=== PATIENT | male | born 1960 | race Caucasian/White ===

== ENCOUNTER 2022-07-25 05:04 | Observation (INO) ==
--- NOTE | 2022-07-03 15:06 | PAT Medication Instructions ---
Medication Instructions Date of Service July 03, 2022 Home Medications amlodipine 5 mg-valsartan 160 mg tablet 1 tab PO QAM atorvastatin 10 mg tablet 10 mg PO QAM oxycodone 10 mg tablet 10 mg PO BID oxycodone 10 mg tablet,crush resistant,extended release 12 hr (OxyContin) 10 mg PO BID tamsulosin 0.4 mg capsule 0.4 mg PO QAM DO NOT take the morning of surgery amlodipine 5 mg-valsartan 160 mg tablet 1 tab PO QAM Take morning of surgery With a small sip of water, OTHERWISE NOTHING TO EAT OR DRINK AFTER MIDNIGHT: atorvastatin 10 mg tablet 10 mg PO QAM oxycodone 10 mg tablet 10 mg PO BID oxycodone 10 mg tablet,crush resistant,extended release 12 hr (OxyContin) 10 mg PO BID tamsulosin 0.4 mg capsule 0.4 mg PO QAM Take evening before surgery oxycodone 10 mg tablet 10 mg PO BID oxycodone 10 mg tablet,crush resistant,extended release 12 hr (OxyContin) 10 mg PO BID Other Notes If you have any questions please call us at [phone] or [phone] or [phone] or [phone]
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
[2022-07-25] MEDS ORDERED: METOCLOPRAMIDE HCL 10 MG TABLET PO SCH (06:00)
[2022-07-25] MEDS ORDERED: FAMOTIDINE 20 MG TAB PO SCH (06:00)
[2022-07-25] MEDS ORDERED: CeleBREX 200 MG CAP PO SCH (06:00)
[2022-07-25] MEDS ORDERED: TRANEXAMIC ACID 1,000 MG **IV Pre-op IV SCH (06:00)
[2022-07-25] MEDS ORDERED: TRANEXAMIC ACID 1,000 MG **IV Intra-op IV SCH (06:00)
[2022-07-25] MEDS ORDERED: dexAMETHasone 4 MG TAB PO SCH (06:00)
[2022-07-25] MEDS ORDERED: LR 500ML BOLUS, THEN 15ML/HR IV SCH (06:00)
[2022-07-25] MEDS ORDERED: ceFAZolin 2000MG 2,000 MG/15 ML SYR IV SCH (06:00)
[2022-07-25] MEDS ORDERED: ACETAMINOPHEN 500 MG TAB PO SCH (06:00)
[2022-07-25] MEDS ORDERED: ROPIVACAINE 0.5% HCL/PF 150 MG, BUPIVACAINE 0.75% MPF 20 ML, EPINEPHrine 30MG/30ML (OR ... INSTIL SCH (06:00)
[2022-07-25] MEDS ORDERED: GABAPENTIN 600 MG DOSE PO SCH (06:00)
[2022-07-25] MEDS ORDERED: BUPIVACAINE 0.5 % 5 MG/1 ML PF 10ML VIAL ONE (06:15)
[2022-07-25] MEDS ORDERED: DEXAMETHASONE SOD INJ 4 MG/ML VIAL ONE (06:15)
[2022-07-25] MEDS ORDERED: ROPIVACAINE 0.5% 5 MG/ML 30 ML VIAL ONE (06:15)
[2022-07-25] MEDS ORDERED: LIDOCAINE 2% 2 ML VIAL/AMP(20MG/ML) INFIL ONE (06:38)
[2022-07-25] MEDS ORDERED: MIDAZOLAM HCL 1 MG/ML 2ML VIAL ONE ×3 (06:38→07:40)
[2022-07-25] MEDS ORDERED: PROPOFOL IV EMULSION 10 MG/ML 20 ML VIAL IV ONE (06:38)
[2022-07-25] MEDS ORDERED: fentaNYL citrate PF 100 MCG/2 ML VIAL ONE (06:38)
--- NOTE | 2022-07-25 06:59 | History & Physical Bridge Note ---
Date of Service July 25, 2022 History & Physical Bridge Note I have examined the patient, reviewed the History & Physical and in the interval since the performance of the History & Physical I have noted the following changes of clinical significance: no changes noted
[2022-07-25] MEDS ORDERED: ORTHO JOINT ANESTHETIC ONE (07:03)
[2022-07-25] MEDS ORDERED: KETAMINE 50 MG/5 ML SYRINGE ONE (07:40)
[2022-07-25] MEDS ORDERED: ATROPINE SULFATE 0.1 MG/ML 10ML SYR IV PRN (07:41)
[2022-07-25] MEDS ORDERED: ONDANSETRON INJ 2 MG/ML 2 ML VIAL IV PRN ×2 (07:41→08:57)
[2022-07-25] MEDS ORDERED: HYDROmorphone INJ 2 MG/ML SYR/VIAL IV PRN (07:41)
[2022-07-25] MEDS ORDERED: ePHEDrine sulfate 50 MG/ML AMP IV PRN (07:41)
[2022-07-25] MEDS ORDERED: ePHEDrine sulfate 50 MG/ML SYR ONE (07:51)
--- NOTE | 2022-07-25 08:24 | Operative Report ---
Post Operative Report Pre & Post Diagnosis Operation Date: 07/25/22 07:00 Pre-Op Diagnosis: Right Knee Osteoarthritis Post-Op Diagnosis: Right Knee Osteoarthritis I identified the patient and participated in the time-out.: Yes Procedure Operation Date: 07/25/22 07:00 Actual Procedures p Right Total Knee Arthroplasty(Right) utilizing [employer] persona patient matched total knee arthroplasty size femur 9 tibia G poly 12 medial constrained patella 34 baldev- Anirudh Flores DO Surgeon Anirudh Flores DO Real Estate Appraiser Supervisor SOPHIA Acosta Estimated Blood Loss 5 Findings Consistent with Post-Op Diagnosis Patient presents with severe end-stage DJD 10 degree flexion contracture varus alignment subchondral sclerosis marginal osteophyte subchondral cystic changes moderate to large effusion Specimens Bone and cartilage Drains Medium bore Hemovac Anesthesia Type MAC Spinal Regional Complications none Disposition Accompanied Patient To Recovery: No Disposition: Recovery Room Indications Patient presents with severe end-stage DJD with the above intraoperative findings failed attempted conservative management occluding physical therapy anti-inflammatories relative rest activity modification corticosteroid injection viscosupplementation above intraoperative findings were noted Description of Procedure After proper prepping and draping of the Right lower extremity anterior midline incision was made over the region of the extensor extensor mechanism after meticulous hemostasis was obtained and maintained in subcutaneous tissues a medial parapatellar incision was made The patella was subluxed lateralward the medial lateral gutter were cleaned from any hypertrophic synovitis and scar t issue of the distal femoral block was placed and the distal femoral osteotomy cut was made subsequently the chamfers anterior and posterior osteotomy cuts were made utilizing the 4-in-1 block the tibia was subsequently subluxed anteriorward medial and ateral meniscal remnants were excised in their entirety remnants of the anterior and posterior cruciate ligaments were excised in their entirety excellent exposure of the proximal tibia was obtained the tibial osteotomy guide was placed on the proximal tibial osteotomy cut was made once again the knee was irrigated with copious amounts of sterile saline solution the patella was subsequently everted lateralward thickened scar tissue around the patella was removed the patella was subsequently cut utilizing a freehand technique and was drilled prepared for final preparation and placement of patella socially flexion-extension gaps were checked and the equal and symmetric trials were placed to the appropriate femoral and tibial trials with poly-spacer being placed for equal flexion and extension gaps and full range of motion including extension to 0 and flexion to 140 the trial components after having been taken to recovery range of motion was subsequently removed meticulous hemostasis was obtained and maintained subsequently a knee block injection of joint cocktail including ropivacaine 0.5% 150 mg. Bupivacaine 0.5% epinephrine 1-200,030 mL's toradol 30 mg dexamethasone 4 mg ketamine 10 mg clonidine 100 micrograms normal saline solution 30 mg was infiltrated into the soft tissues of the posterior knee medial lateral gutters and periosteal synovium special attention was paid to protect neurovascular structures at all times subsequently trial components having been removed the knee was irrigated with sterile saline solution. debris was removed the proximal tibia was subsequently prepared and was made ready for the placement of the tibial component tibial component was also cemented and tamped into position the femoral component was subsequently placed and cemented in the position the patellar component was subsequently cemented in position because hemostasis once again obtained and maintained wound having been thoroughly irrigated with debridement and debridement lavage was performed as well as a medial parapatellar incision closed with #1 Vicryl in interrupted fashion subcutaneous was closed with #2 Vicryl skin was closed with skin clips. PA-C was necessary for prepping and drapping as well as wound closure of deep fascia Sub cutaneous tissue and skin and was necessary for the case. A sterile compressive dressing was placed patient was taken to recovery in stable condition of report dictated by Mark I attest to the content of the Intraoperative Record and any orders documented therein. Any exceptions are noted below.Due to the complex nature of the procedure, the entire surgery was performed with the operational assistance of SOPHIA Acosta. The gift shop assistant, under direct supervision, was involved in the actual performance of all aspects of the surgical procedure including hemostasis, tissue retraction and incision, instrument management, patient positioning, and wound closure. I attest to the content of the Intraoperative Record and any orders documented therein. Any exceptions are noted below.
[2022-07-25] MEDS ORDERED: NALOXONE HCL 0.4 MG/1 ML VIAL/CARP IV PRN (08:57)
[2022-07-25] MEDS ORDERED: HYDROmorphone INJ 1 MG/ML SYRINGE IV PRN (08:57)
[2022-07-25] MEDS ORDERED: METOCLOPRAMIDE HCL INJ 5 MG/ML 2 ML VIAL IV PRN (08:57)
[2022-07-25] MEDS ORDERED: bisacodyL 10 MG SUPP PR PRN (08:57)
[2022-07-25] MEDS ORDERED: diphenhydrAMINE Capsule 25 MG CAP PO PRN (08:57)
[2022-07-25] MEDS ORDERED: oxyCODONE HCL IR 5 MG TAB (IMMEDIATE RELEASE) PO PRN (08:57)
[2022-07-25] MEDS ORDERED: MAGNESIUM HYDROXIDE SUSP 30 ML UDC PO PRN (08:57)
[2022-07-25] MEDS ORDERED: SODIUM CHLORIDE 0.9% 1000ML 1,000 ML IV SCH (09:00)
--- NOTE | 2022-07-25 09:21 | Anesthesiology Progress Note ---
Date of Service July 25, 2022 Anesthesia Post Procedure Vital Signs Vital Signs: Temp Pulse Pulse Resp BP Pulse Ox O2 Del Method 07/25/22 09:10 83 12 94/63 L 93 Room Air 07/25/22 09:00 83 14 88/60 L 97 Oxymask 07/25/22 08:57 36 C L 80 16 82/49 L 97 Oxymask 07/25/22 05:49 36.6 C 75 20 137/78 97 Room Air O2 Flow Rate 07/25/22 09:10 07/25/22 09:00 6 07/25/22 08:57 6 07/25/22 05:49 Pain Intensity Right Knee: Pain Intensity: 4 Transfer of Care Handoff Completed per policy Notes Mental Status: alert / awake / arousable and participated in evaluation Nausea / Vomiting: adequately controlled Pain: adequately controlled Airway Patency, RR, SpO2: stable & adequate BP & HR: stable & adequate Hydration State: stable & adequate Neuraxial Anesthesia: was administered and sensory block is resolving Anesthetic Complications: no major complications apparent and Pt Satisfied with anesthetic care
--- NOTE | 2022-07-25 09:37 | XRay Report ---
XR knee RT 1 or 2V routine HISTORY: 62 years-old Male Surgical Post Op right knee arthroplasty COMPARISON: None TECHNIQUE: 2 views of the right knee FINDINGS: Total joint arthroplasty with patellar resurfacing. Surgical drainage catheter noted along with expec kulwant postoperative soft tissue swelling with deep tissue air. No acute fracture, dislocation or unexpe cted opaque foreign body identified. IMPRESSION: Total joint arthroplasty and patellar resurfacing with expected postoperative changes. ACT 112: Negative or not required by law. The above report was generated using voice recognition software. It may contain grammatical, syntax o r spelling errors. Electronically signed by: Chung Frost M.D. 07/25/2022 9:36 AM
[2022-07-25] MEDS ORDERED: AMLODIPINE VALSARTAN PO SCH (10:09)
[2022-07-25] MEDS: amLODIPine BESYLATE 5 MG TAB PO SCH (11:42)
[2022-07-25] MEDS: ATORVASTATIN 10 MG TAB PO SCH (11:42)
[2022-07-25] MEDS: TAMSULOSIN HCL 0.4 MG CAP PO SCH (11:42)
[2022-07-25] MEDS: VALSARTAN 80 MG TAB PO SCH (11:43)
[2022-07-25] MEDS: ASPIRIN 81 MG ECTAB PO SCH ×2 (11:43→20:39)
[2022-07-25] MEDS: DOCUSATE SODIUM 100 MG CAP PO SCH ×2 (11:43→20:38)
[2022-07-25] MEDS: MULTIVITAMIN TAB PO SCH (11:43)
[2022-07-25] MEDS: KETOROLAC 30 MG/ML VIAL IV SCH ×3 (11:43→20:40)
[2022-07-25] MEDS: oxyCODONE HCL 10 MG TABCR (OxyCONTIN) PO SCH ×2 (11:45→20:37)
[2022-07-25] MEDS: ACETAMINOPHEN 500 MG TAB PO SCH ×2 (13:35→22:24)
[2022-07-25] MEDS: ceFAZolin 2000MG 2,000 MG/15 ML SYR IV SCH ×2 (13:59→22:24)
[2022-07-25] MEDS ORDERED: SENNA 8.6 MG TAB PO SCH (21:00)
[2022-07-26] MEDS: KETOROLAC 30 MG/ML VIAL IV SCH (03:27)
[2022-07-26] MEDS: ACETAMINOPHEN 500 MG TAB PO SCH (05:54)
[2022-07-26 06:20] LABS: Hematocrit (blood only) 40.4 % (42.0-52.0); Hemoglobin 14.2 g/dl (14.0-18.0); Mean Corpuscular Hemoglobin 30.9 pg (25.0-34.0); Mean Corpuscular Hgb Conc 35.1 g/dL (32.0-36.0); Mean Corpuscular Volume 87.8 fL (80.0-100.0); Platelet Count 265 K/uL (130-400); RDW Coefficient of Variation 12.7 % (11.5-14.5); RDW Standard Deviation 40.7 fL (36.4-46.3); White Blood Count 15.23 K/ul (4.8-10.8)
[2022-07-26 06:32] LABS: BUN Creatinine Ratio 17.9 (10-20); Calcium 9.2 mg/dl (8.6-10.3); Creatinine Clr Calc Pharmacy 99.9 ml/min; Est GFR (Non-African American) 85.4 ml/min
[2022-07-26] MEDS: MULTIVITAMIN TAB PO SCH (07:50)
[2022-07-26] MEDS: ASPIRIN 81 MG ECTAB PO SCH (07:50)
[2022-07-26] MEDS: VALSARTAN 80 MG TAB PO SCH (07:50)
[2022-07-26] MEDS: ATORVASTATIN 10 MG TAB PO SCH (07:50)
[2022-07-26] MEDS: TAMSULOSIN HCL 0.4 MG CAP PO SCH (07:50)
[2022-07-26] MEDS: DOCUSATE SODIUM 100 MG CAP PO SCH (07:51)
[2022-07-26] MEDS: amLODIPine BESYLATE 5 MG TAB PO SCH (07:51)
[2022-07-26] MEDS: oxyCODONE HCL 10 MG TABCR (OxyCONTIN) PO SCH (07:53)
[2022-07-26] MEDS ORDERED: CeleBREX 200 MG CAP PO SCH (09:00)
--- NOTE | 2022-07-26 09:56 | Orthopedic Progress Note ---
Date of Service July 26, 2022 Assessment & Plan (1) Arthritis of right knee: Plan: Postop day 1 status post right total knee arthroplasty PT/OT protocols. Weightbearing as tolerated. DVT prophylaxis-aspirin p.o. twice daily, SCDs, JEFFERY siegel. Pain management as written. Leukocytosis-likely secondary from preoperative steroids and/or surgical stress. Patient asymptomatic DC planning-patient is planning for home health services upon discharge. Plan for discharge to home today. Admission and Anticipated Discharge Date Admission Date: July 25, 2022 Subjective Postop day 1 Patient was just finishing up his physical therapy session ambulating in the hallway. Physical therapist states he did well with stairs and is progressing well. Patient does have some mild pain in the right knee after having therapy but states he is tolerating well. He feels currently comfortable. Denies shortness of breath, chest pain, lightheadedness. He is hoping to go home today. Physical Exam Physical Exam: Dressings are clean, dry, and intact. Calves are soft nontender. Neurovascular is intact. Toes are mobile. He has good dorsiflexion and plantarflexion of the right foot. Hemovac drainage was 200 cc from the previous shift. Results & Data Vital Signs (Past 12 Hours) Vital Signs Temp Pulse Resp BP BP Pulse Ox O2 Del Method 07/26/22 06:24 36.5 C 70 16 123/79 97 Room Air 07/26/22 02:50 36.3 C L 72 16 108/65 98 Room Air 07/25/22 22:37 36.3 C L 80 16 131/73 97 Room Air Laboratory Results Laboratory Results WBC 15.23 K/ul (4.8-10.8) H 07/26/22 05:51 RBC 4.60 M/uL (4.70-6.10) L 07/26/22 05:51 Hgb 14.2 g/dl (14.0-18.0) 07/26/22 05:51 Hct 40.4 % (42.0-52.0) L 07/26/22 05:51 MCV 87.8 fL (80.0-100.0) 07/26/22 05:51 MCH 30.9 pg (25.0-34.0) 07/26/22 05:51 MCHC 35.1 g/dL (32.0-36.0) 07/26/22 05:51 RDW Std Deviation 40.7 fL (36.4-46.3) 07/26/22 05:51 RDW Coeff of Jason 12.7 % (11.5-14.5) 07/26/22 05:51 Plt Count 265 K/uL (130-400) 07/26/22 05:51 MPV 9.0 fL (9.4-12.4) L 07/26/22 05:51 Sodium 138 mmol/L (136-145) 07/26/22 05:51 Potassium 4.0 mmol/L (3.5-5.1) 07/26/22 05:51 Chloride 105 mmol/L (98-107) 07/26/22 05:51 Carbon Dioxide 26 mmol/L (21-32) 07/26/22 05:51 Anion Gap 7 (3-11) 07/26/22 05:51 BUN 17 mg/dl (6-23) 07/26/22 05:51 Creatinine 0.95 mg/dl (0.6-1.4) 07/26/22 05:51 Est Cr Clr Drug Dosing 99.9 ml/min 07/26/22 05:51 Est GFR ( Amer) 99.0 ml/min 07/26/22 05:51 Est GFR (Non-Af Amer) 85.4 ml/min 07/26/22 05:51 BUN/Creatinine Ratio 17.9 (10-20) 07/26/22 05:51 Glucose 123 mg/dl (70-99(Fasting)) H 07/26/22 05:51 Calcium 9.2 mg/dl (8.6-10.3) 07/26/22 05:51 SARS-CoV-2, RNA, NAAT NEGATIVE (NEGATIVE) 07/25/22 05:16 Impressions Knee X-Ray 07/25/22 09:00 XR knee RT 1 or 2V routine HISTORY: 62 years-old Male Surgical Post Op right knee arthroplasty COMPARISON: None TECHNIQUE: 2 views of the right knee FINDINGS: Total joint arthroplasty with patellar resurfacing. Surgical drainage catheter noted along with expected postoperative soft tissue swelling with deep tissue air. No acute fracture, dislocation or unexpected opaque foreign body identified. IMPRESSION: Total joint arthroplasty and patellar resurfacing with expected postoperative changes. ACT 112: Negative or not required by law. The above report was generated using voice recognition software. It may contain grammatical, syntax or spelling errors. Electronically signed by: Chung Frost M.D. 07/25/2022 9:36 AM
--- NOTE | 2022-07-26 11:58 | Discharge Summary ---
Date of Service date of discharge: July 26, 2022 date of admission: 07-25-22 Admission HPI Per Admitting Provider Neno is a pleasant 62-year-old male who presents for preop evaluation prior to his right total knee replacement. He states that he been having pain in his knee for many years now which is gradually worsened and is now affecting his daily activities including walking standing using stairs. He has a history of prior knee arthroscopy as well as injections including cortisone and viscosupplementation without any significant relief. He does use oxycodone and OxyContin for pain, he states these are more so for his neck and shoulder pain and is managed by [facility]. This point time is failed conservative measures and would like to proceed with a right total knee replacement Principal Diagnosis right knee arthritis Discharge Exam Vital Signs Temp 36.6 C 07/26/22 11:22 Pulse 72 07/26/22 11:22 Resp 18 07/26/22 11:22 BP 121/81 07/26/22 11:22 Pulse Ox 98 07/26/22 11:22 O2 Del Method Room Air 07/26/22 11:22 O2 Flow Rate 6 07/25/22 09:00 Intake & Output 07/25/22 07/26/22 07/26/22 18:59 06:59 18:59 Intake Total 3141.667 / 3141.667 Output Total 845 / 3570 2725 / 3570 300 / 300 Balance 2296.667 / -428.333 -2725 / -428.333 -300 / -300 Weight 114.6 kg 114.6 kg Intake: IV 861.667 / 861.667 Lactated Ringer's 1,000 ml @ 15 0 / 0 mls/hr IV .Q24H NEAL Rx#: [id number] Sodium Chloride 0.9% 1000ML 1, 661.667 / 661.667 000 ml @ 100 mls/hr IV .Q10H NEAL Rx#:[id number] Tranexamic Acid / 0.7% NaCl 1, 200 / 200 000 mg In 100 ml @ 600 mls/hr IV TODAY@0600 NEAL Rx#:[id number] IV Perioperative 1800 / 1800 Oral 480 / 480 Output: Urine 500 / 2875 2375 / 2875 Estimated Blood Loss 5 / 5 Drain Output 340 / 690 350 / 690 300 / 300 Right Knee Hemovac 340 / 690 350 / 690 300 / 300 Musculoskeletal right knee: NVDI, calf SNT, negative zoraida sign. DP palpable, able to wiggle toes/ankle movement without difficulty. MIGUEL dressing clean dry and intact. expected post-operative bruising noted. Discharge Data Allergies Allergy/AdvReac Type Severity Reaction Status Date / Time morphine Allergy Intermediate Vomiting Verified 07/25/22 05:31 Cleanser Allergy Hives Uncoded 07/10/22 10:22 (with preop cleanser) Procedures Performed Operation Date: 07/25/22 07:00 Actual Procedures p Right Total Knee Arthroplasty(Right) - Anirudh Flores DO Ordered Studies 07/25/22 05:00 US - OR guided needle placemen Routine Hospital Course (1) Arthritis of right knee: Postop day 1 status post right total knee arthroplasty PT/OT protocols. Weightbearing as tolerated. DVT prophylaxis-aspirin p.o. twice daily, SCDs, JEFEFRY hose. Pain management as written. Leukocytosis-likely secondary from preoperative steroids and/or surgical stress. Patient asymptomatic DC planning-patient is planning for home health services upon discharge. Plan for discharge to home today. Total Time Total Time Spent Total Time Spent (In Minutes): 20 Discharge Plan Discharge Items Patient Disposition: Home - Home Health Services Reason For Visit: Right Knee Osteoarthritis Discharge Diagnosis: right total knee replacement Activity: Per Instructions section Weightbearing: Right weightbearing Weightbearing Comment: right leg WBAT with walker Non-emergency contact: Surgeon Call non-emergency contact if: you have any medication questions, your temperature is above 101, your wound has increased redness, your wound has increased drainage and your wound pain has increased Follow-up/Referrals: Adonis Beatty PA-C [Physician Dental Service Chief] - None (14-16 days post op) Steve Packer [Primary Care Provider] - Diet: Regular Addtl Attending Provider Instructions: ACTIVITY RECOMMENDATIONS: SELF CARE INSTRUCTIONS AFTER TOTAL KNEE REPLACEMENT A. You may need to continue a physical therapy program after discharge from the hospital. There are several options available to you. Your doctor will assist you in selecting the best one for you. 1. An out-patient facility 2 to 3 times a week for therapy or home therapy. 2. Continue working on all exercises taught to you in the hospital. Your goals should be to increase bending of your knee to 90 degrees and beyond and to fully straighten your knee. B. You may progress at your own pace from walking with a walker or crutches to a cane; then to no assistive devices. C. Make walking a part of your daily routine. Be up as much as comfortable with rest periods throughout the day. Rest with leg elevation is very important. Use the ice wrap frequently for the first 3-4 weeks. D. There are no restrictions on activities. You may ride in a car, shop, participate in roll builder and all social activities. E. Wear the long elastic stockings (JEFFERY hose) 20 hours a day for 2 weeks after surgery. They can be removed several times a day for laundering and for a bath. F. You may shower, no tub baths until cleared by your doctor. SPECIAL CARE INSTRUCTIONS: VERY IMPORTANT TO READ AND REVIEW A. There are a few signs you need to watch for after you are home. Call [facility] if you notice any of the followin. Increased severe knee pain. Some pain is expected especially when you exercise. 2. Increased swelling in your leg or knee; pain or swelling of the calf muscle in either lower leg. 3. Any fluid drainage from the incision. 4. Shortness of breath or chest pain. B. Please call [facility] at if you have any concerns or questions about your operation or recovery. The doctor or his nurse will return your call promptly. C. You must take antibiotics before dental work, bladder, bowel or other surgery. Your doctor will provide you with a permanent care to carry describing this precaution. IMPORTANT: * REMEMBER TO TAKE ASPIRIN, 81 MG, TWICE DAILY FOR 4 WEEKS UNLESS OTHERWISE DIRECTED. THIS IS YOUR BLOOD THINNER. * HIGH RISK PATIENTS MAY BE PRESCRIBED A STRONGER BLOOD THINNER. THIS WILL BE PROVIDED AT DISCHARGE. * CALL IF INCREASED PAIN, REDNESS, DRAINAGE OR FEVER GREATER THAT 101. * WEAR JEFFERY HOSE 20 HOURS PER DAY FOR 2 WEEKS. DRESSING INSTRUCTIONS * MIGUEL Dressing- This is a large suction dressing covering your incision. This will help pull any excess drainage from the wound and allow your incision to heal properly. You may shower with this if you can keep the unit outside of the shower. If any bleeding or leakage is noted please call your doctor's office. This will remain on your incision for 7 days and then should be removed. This can be done yourself or by the home nursing staff if applicable. The entire unit is disposable once removed. Once removed, keep incision clean and dry. If redness or drainage is noted, please call your surgeon. ONCE MIGUEL IS REMOVED, FOLLOW THESE INSTRUCTIONS: DERMABOND Prineo- This is a mesh tape dressing that is covered with glue. It should remain in place until the incision is properly healed, usually 10-14 days. This dressing is designed to naturally slough off. You may trim the excess mesh tape as it peels off. Incision may be briefly wet in a shower. Dry immediately by blotting with a clean, dry towel. Do not bath or swim until instructed by your doctor. Do not scratch, rub, or pick at the dressing. Do not apply any topical ointments or lotions until dressing is completely removed and/or instructed by your doctor. There may be a small piece of suture material at one end of your incision. Do not pull or trim this. If it is bothersome or catching on clothing, you may cover it with a band-aid. IF INCISION IS LEAKING THROUGH DRESSING, CALL THE OFFICE . FOLLOW UP VISIT: If appointment is not already scheduled: Please call [facility] to make a follow-up appointment for 2 weeks after your surgery at . Stand-Alone Forms: My [facility] Medications and DC Order Prescriptions: New celecoxib [Celebrex] 200 mg Capsule 200 mg PO BID 14 Days Qty: 28 0RF aspirin 81 mg Tablet,Delayed Release (Dr/Ec) 81 mg PO BID 30 Days Qty: 60 0RF acetaminophen [Tylenol Extra Strength] 500 mg Tablet 1,000 mg PO Q8 14 Days Qty: 84 0RF polyethylene glycol 3350 [Miralax] 17 gram powder in packet 17 g PO DAILY PRN (Reason: constipation) Qty: 5 0RF cefadroxil 500 mg capsule 500 mg PO BID Qty: 28 1RF Continued atorvastatin 10 mg Tablet 10 mg PO QAM tamsulosin 0.4 mg Capsule 0.4 mg PO QAM amlodipine-valsartan 5-160 mg Tablet 1 tab PO QAM oxycodone 10 mg Tablet 10 mg PO BID oxycodone [OxyContin] 10 mg Tablet,Oral Only,Ext.Rel.12 Hr 10 mg PO BID Admission Data Admit Date/Time: 07/25/22 08:57 Attending Provider: Anirudh Flores Admit Provider: Anirudh Flores Primary Care Provider: Steve Packer Other Providers: [facility],Home [facility] Other Interventions: Discharge Summary Assessment (RN) Last Done: 07/26/22 10:12
== END 2022-07-26 12:53 | disposition home health service (06) ==
LOC: ASU 05:04 → 3E 05:04